=== PATIENT | male | born 1990 ===

== ENCOUNTER 2017-12-22 01:06 | Emergency (ER) | payer OTHER ==
[2017-12-22 01:31] VITALS: BP 144/91; PULSE 85; RESP 16; TEMP 98.2; O2SAT 97
[2017-12-22] MEDS ORDERED: Tdap Vaccine 0.5 ml Vial (10-64 yrs) IM ONE ×2 (01:35→02:29)
[2017-12-22] MEDS ORDERED: Lidocaine 1% Inj (20ml) IJ ONE (01:35)
--- NOTE | 2017-12-22 01:38 | ED PDOC ---
HPI: Wound Care - HPI Time Seen by Provider: 12/22/17 01:27 Chief Complaint (Nursing): Abnormal Skin Integrity Chief Complaint (Provider): left thumb laceration History Per: Patient History Of Present Illness: 27 y/o male presents for evaluation of laceration to left thumb sustained prior to arrival. Patient was at work using a knife to cut a tortilla wrap and he accidentally sliced his left thumb that was holding the wrap down. Denies numbness/weakness left upper extremity, limitation of movement. Last tetanus unknown. Past Medical History Reviewed: Historical Data, Nursing Documentation, Vital Signs Vital Signs: Last Vital Signs Temp 98.2 F 12/22/17 01:27 Pulse 85 12/22/17 01:27 Resp 16 12/22/17 01:27 BP 144/91 H 12/22/17 01:27 Pulse Ox 97 12/22/17 01:27 - Medical History PMH: No Chronic Diseases - Surgical History Surgical History: No Surg Hx - Family History Family History: States: No Known Family Hx - Allergies Allergies/Adverse Reactions: Allergies Allergy/AdvReac Type Severity Reaction Status Date / Time No Known Allergies Allergy Verified 12/22/17 01:30 Review of Systems ROS Statement: Except As Marked, All Systems Reviewed And Found Negative Musculoskeletal: Positive for: Hand Pain (left thumb laceration) Physical Exam - Reviewed Nursing Documentation Reviewed: Yes Vital Signs Reviewed: Yes - Physical Exam Appears: Positive for: Well, Non-toxic, No Acute Distress Extremity: Positive for: Normal ROM, Capillary Refill (<2 sec b/l UE), Other ( 1.5cm laceration distal palmar left thumb extending medially; no active bleeding. Nail intact. Distal NV/motor intact) Neurologic/Psych: Positive for: Alert, Oriented. Negative for: Motor/Sensory Deficits - ECG O2 Sat by Pulse Oximetry: 97 Procedure: Wound Repair - Time Performed Time Performed: 01:45 - Time Out Time Out: Side verified, Site verified, Patient ID confirmed, Sterile procedures obs. - Consent Obtained Consent obtained: Verbal - Performed by Performed by: Mid-level Provider - Location Finger:: Left, Thumb Shape:: Curvilinear Dimensions Length cm: 1.5 Dimensions width cm: 0.5 Depth:: Epidermis - Anesthetic Technique Anesthetic Technique: Topical Local/Regional Anesthetic:: Lidocaine 1% - Debris Debris:: None - Irrigated Irrigated with ml of normal saline: 200mL - Complexity Complexity:: Simple (one layer) - Wound repair method Sutures:: # (5), Size (4'0), Type (nylon), Technique (interrupted) - Muscle repiar layer closed with Muscle repair layer closed with:: Abx ointment applied, Dressing applied, Tetanus ordered - Patient tolerated procedure Patient Tolerated Procedure:: Well Medical Decision Making Medical Decision Making: Patient educated on wound care, suture removal 8 days. Return precautions given Disposition - Clinical Impression Clinical Impression: Laceration of left thumb - Patient ED Disposition Is Patient to be Admitted: No Counseled Patient/Family Regarding: Diagnosis, Need For Followup - Disposition Referrals: [facility] [Outside] Disposition: Routine/Home Disposition Time: 02:18 Condition: STABLE Instructions: Laceration Repair Forms: [employer] (Samoan), [facility] ED School/Work Excuse Print Language: YORUBA
[2017-12-22] MEDS ORDERED: Lidocaine 1% MPF (30 ml) Inj ONE (01:40)
[2017-12-22] MEDS ORDERED: Povidone Iodine Topical 10% Sol ONE (01:40)
== END 2017-12-22 02:30 | disposition home or self-care (01) ==
LOC: H.ER 01:06
DX: S61.012A Laceration without foreign body of left thumb without damage to nail, initial encounter (principal); W26.0XXA Contact with knife, initial encounter; Y99.0 Civilian activity done for income or pay; Z23 Encounter for immunization

== ENCOUNTER 2017-12-25 12:56 | Emergency (ER) | payer OTHER ==
[2017-12-25 13:09] VITALS: BP 120/74; PULSE 68; RESP 18; TEMP 98.2; O2SAT 100
--- NOTE | 2017-12-25 13:53 | ED PDOC ---
HPI: Wound Care - HPI Chief Complaint (Nursing): Wound Check History Per: Patient Exam Limitations: no limitations Current Symptoms Are (Timing): Still Present Additional Complaint(s): 27-year-old presents to ED for wound check and possible suture removal to left thumb. States he accidentally sliced his left thumb with knife at work 3 days ago. PMD: Provider ZENOBIA. Past Medical History Reviewed: Historical Data, Nursing Documentation, Vital Signs Vital Signs: Last Vital Signs Temp 98.2 F 12/25/17 13:07 Pulse 68 12/25/17 13:07 Resp 18 12/25/17 13:07 BP 120/74 12/25/17 13:07 Pulse Ox 100 12/25/17 13:07 - Medical History PMH: No Chronic Diseases - Surgical History Surgical History: No Surg Hx - Family History Family History: States: Unknown Family Hx - Allergies Allergies/Adverse Reactions: Allergies Allergy/AdvReac Type Severity Reaction Status Date / Time No Known Allergies Allergy Verified 12/22/17 01:30 Review of Systems ROS Statement: Except As Marked, All Systems Reviewed And Found Negative Skin: Positive for: Other (Suture noted to left thumb) Physical Exam - Reviewed Nursing Documentation Reviewed: Yes Vital Signs Reviewed: Yes - Physical Exam Extremity: Positive for: Other (Distal Tip of Left Thumb: (+) well-healing wound , dry blood noted, no infection noted, ) - ECG O2 Sat by Pulse Oximetry: 100 (RA) Pulse Ox Interpretation: Normal Medical Decision Making Medical Decision Making: Wound to Distal Tip of Left Thumb Wound cleanse with hydrogen peroxide water. Applied Antibiotic Ointment and dressing. Pt advised to return to ED for removal of sutures in 4 days. Scribe Attestation: Documented by Matt Bonilla, acting as a scribe for Alberto Patrick PA-C. Provider Scribe Attestation: All medical record entries made by the Scribe were at my direction and personally dictated by me. I have reviewed the chart and agree that the record accurately reflects my personal performance of the history, physical exam, medical decision making, and the department course for this patient. I have also personally directed, reviewed, and agree with the discharge instructions and disposition. Disposition - Clinical Impression Clinical Impression: Encounter for wound re-check - Patient ED Disposition Is Patient to be Admitted: No - Disposition Disposition: Routine/Home Disposition Time: 14:14 Condition: FAIR Additional Instructions: RETURN TO ED IN 4 DAYS FOR SUTURES REMOVAL Instructions: Wound Care (DC) Forms: [facility] ED School/Work Excuse Print Language: CAMBODIAN
== END 2017-12-25 14:15 | disposition home or self-care (01) ==
LOC: H.ER 12:56
DX: Z48.01 Encounter for change or removal of surgical wound dressing (principal)

== ENCOUNTER 2017-12-31 16:00 | Emergency (ER) | payer OTHER ==
[2017-12-31 16:12] VITALS: BP 137/75; PULSE 77; RESP 16; TEMP 98.4; O2SAT 98
--- NOTE | 2017-12-31 16:41 | ED PDOC ---
HPI: Wound Care - HPI Time Seen by Provider: 12/31/17 16:26 Chief Complaint (Nursing): Suture/Staple Removal Chief Complaint (Provider): Suture removal History Per: Patient Exam Limitations: no limitations Onset/Duration Of Symptoms: Days (x1 week) Current Symptoms Are (Timing): Still Present Location Of Injury: Left: Hand (thumb) Additional Complaint(s): Prashant Guallpa is a 27 year old male, with no significant past medical history, who presents to the emergency department for sutures removal put in place x1 week ago. Patient has x5 sutures in his left thumb after he injured it with a knife while cutting a wrap. He denies any fever, chills or other medical complaints. PMD: None provided. Past Medical History Reviewed: Historical Data, Nursing Documentation, Vital Signs Vital Signs: Last Vital Signs Temp 98.4 F 12/31/17 16:09 Pulse 77 12/31/17 16:09 Resp 16 12/31/17 16:09 BP 137/75 12/31/17 16:09 Pulse Ox 98 12/31/17 16:09 - Medical History PMH: No Chronic Diseases - Surgical History Surgical History: No Surg Hx - Family History Family History: States: Unknown Family Hx - Allergies Allergies/Adverse Reactions: Allergies Allergy/AdvReac Type Severity Reaction Status Date / Time No Known Allergies Allergy Verified 12/31/17 16:09 Review of Systems ROS Statement: Except As Marked, All Systems Reviewed And Found Negative Constitutional: Negative for: Fever, Chills Skin: Positive for: Other (left thumb sutures) Physical Exam - Reviewed Nursing Documentation Reviewed: Yes Vital Signs Reviewed: Yes - Physical Exam Appears: Positive for: Non-toxic, No Acute Distress Head Exam: Positive for: ATRAUMATIC, NORMOCEPHALIC Skin: Positive for: Normal Color, Warm, Dry Eye Exam: Positive for: Normal appearance Neck: Positive for: Painless ROM Respiratory: Negative for: Respiratory Distress Extremity: Positive for: Normal ROM (upper and lower extremities), Other (x5 sutures in place to the left 1st digit. ). Negative for: Deformity, Swelling Neurologic/Psych: Positive for: Alert, Oriented. Negative for: Motor/Sensory Deficits - ECG O2 Sat by Pulse Oximetry: 98 (RA) Pulse Ox Interpretation: Normal Medical Decision Making Medical Decision Making: Time: 16:26 Initial Impression: suture removal Initial Plan: --x5 sutures in [address] easily removed with suture kit. Good wound closure and hemostasis. Wound is well healed, no erythema or drainage. The patient tolerated the procedure well and there were no complications. Scribe Attestation: Documented by Rolando Melara, acting as a scribe for Su Barrera PA-C Provider Scribe Attestation: All medical record entries made by the Scribe were at my direction and personally dictated by me. I have reviewed the chart and agree that the record accurately reflects my personal performance of the history, physical exam, medical decision making, and the department course for this patient. I have also personally directed, reviewed, and agree with the discharge instructions and disposition. Disposition - Clinical Impression Clinical Impression: Visit for suture removal - Disposition Disposition Time: 16:39 Condition: STABLE Instructions: Stitches Removal Forms: [employer] (Bhutanese)
== END 2017-12-31 17:04 | disposition home or self-care (01) ==
LOC: H.ER 16:00
DX: Z48.02 Encounter for removal of sutures (principal)

== ENCOUNTER 2018-07-01 23:22 | Emergency (ER) | payer MEDICAID, OTHER, SELFPAY ==
[2018-07-01 23:41] VITALS: BP 154/89; PULSE 90; RESP 18; TEMP 97.6; O2SAT 98
== END 2018-07-02 01:05 | disposition left against medical advice (07) ==
LOC: H.ER 23:22
DX: Z02.89 Encounter for other administrative examinations (principal)